=== PATIENT | female | born 1965 | race American Indian/Alaskan Native ===

== ENCOUNTER 2018-07-23 14:59 | Emergency (ER) | payer OTHER ==
[2018-07-23 15:21] VITALS: BP 151/88
--- NOTE | 2018-07-23 15:22 | Emergency Department Report ---
Chief Complaint: Upper Respiratory Infection Stated Complaint: RT SIDE PAIN/CHEST CONGESTED Time Seen by Provider: 07/23/18 15:17 - HPI History of Present Illness: Pt is c/o a non productive cough that began two days (+) subjective fever, congestion, rhinorrhea, SOB current smoker Pt also c/o right flank pain x2 days (+)urinary frequency no dysuria no injury or fall (+) CVAT VSS MSE complete MSE screening note: Focused history and physical exam performed. Due to findings the following was ordered: UA, CXR ED Disposition for MSE Condition: Stable
[2018-07-23] MEDS ORDERED: PROVENTIL IH ONE (16:57)
[2018-07-23] MEDS ORDERED: DECADRON IM ONE (16:57)
[2018-07-23] MEDS ORDERED: TORADOL IM ONE (16:57)
--- NOTE | 2018-07-23 16:58 | Emergency Department Report ---
Minor Respiratory - HPI Chief Complaint: Upper Respiratory Infection Stated Complaint: RT SIDE PAIN/CHEST CONGESTED Time Seen by Provider: 07/23/18 15:17 Duration: 2 Days Pain Location: Chest Severity: mild Minor Respiratory: Yes Able to Tolerate Fluids, Yes Cough, No Rhinorrhea, No Sore Throat, No Ear Pain, No Sick Contacts, No Hemoptysis, No Chest Pain, No Shortness of Breath, No Fever Other History: Patient is a 53 year-old female comes to the ER with cough congestion fever and right-sided pain for 2 days. She has a history of chronic bronchitis. The pain is lower right thoracic area and it is worse with movement. She has taken no medications at home to make this better. Vital signs are stable, she is afebrile, and she is ambulatory on admission to the ED ED Review of Systems ROS: Stated complaint: RT SIDE PAIN/CHEST CONGESTED Other details as noted in HPI Comment: All other systems reviewed and negative Constitutional: see HPI. denies: chills, fever Eyes: denies: eye pain ENT: as per HPI. denies: ear pain Respiratory: see HPI Cardiovascular: as per HPI, other (r side lateral rib cage area) Endocrine: denies: intolerance to cold Gastrointestinal: denies: abdominal pain, nausea, vomiting Genitourinary: denies: urgency, dysuria Musculoskeletal: denies: back pain Skin: denies: rash Neurological: denies: headache Psychiatric: denies: as per HPI, depression Hematological/Lymphatic: denies: easy bleeding ED Past Medical Hx - Past Medical History Hx Hypertension: Yes Hx Asthma: Yes Additional medical history: hypothyroid. high cholesterol - Surgical History Additional Surgical History: Cesearean section x2 - Family History Family history: no significant - Social History Smoking Status: Current Every Day Smoker Substance Use Type: None - Medications Home Medications: Home Medications Medication Instructions Recorded Confirmed Last Taken Type Albuterol Sulfate [Ventolin HFA] 2 puff IH Q4H PRN #1 hfa.aer.ad 07/23/18 Unknown Rx Azithromycin [Zithromax Z-MECHE] 250 mg PO DAILY #6 tablet 07/23/18 Unknown Rx Benzonatate [Tessalon Perles] 100 mg PO Q8HR PRN #20 capsule 07/23/18 Unknown Rx predniSONE [Deltasone] 20 mg PO DAILY #5 tablet 07/23/18 Unknown Rx Minor Respiratory Exam - Exam General: Vital signs noted. No distress. Alert and acting appropriately. HEENT: Yes Moist Mucous Membranes, Yes Rhinorrhea, No Pharyngeal Erythema, No Pharyngeal Exudates, No Conjuctival Injection, No Frontal Tenderness, No Maxillary Tenderness Ear: Neither TM Bulge, Neither TM Erythema, Neither EAC Pain, Neither EAC Discharge Neck: Yes Supple, No Adenopathy Lungs: Yes Good Air Exchange, Yes Wheezes, Yes Cough, No Ronchi, No Stridor, No Labored Respirations, No Retractions, No Use of Accessory Muscles, No Other Abnormal Lung Sounds Heart: Yes Regular, No Murmur Abdomen: Yes Normal Bowel Sounds, No Tenderness, No Peritoneal Signs Skin: No Rash, No Edema Neurologic: Alert and oriented, no deficits. Musculoskeletal: Unremarkable. ED Course Vital Signs 07/23/18 15:18 Temperature 98.5 F Pulse Rate 96 H Respiratory 20 Rate Blood Pressure 151/88 O2 Sat by Pulse 99 Oximetry ED Medical Decision Making - Radiology Data Radiology results: report reviewed, image reviewed - Medical Decision Making Vital Signs 07/23/18 15:18 Temperature 98.5 F Pulse Rate 96 H Respiratory 20 Rate Blood Pressure 151/88 O2 Sat by Pulse 99 Oximetry duoneb, prednisone and toradol for pain . Will dc home on antibiotics. Pt has been instructed to follow up with PCP this week to be sure she is getting better. Critical care attestation.: If time is entered above; I have spent that time in minutes in the direct care of this critically ill patient, excluding procedure time. ED Disposition Clinical Impression: Bronchitis, Chest wall pain Disposition: DC-01 TO HOME OR SELFCARE Is pt being admited?: No Does the pt Need Aspirin: No Condition: Stable Instructions: Chronic Bronchitis (ED), Trigger Point Pain (ED) Additional Instructions: meds as ordered today hydrate well with water follow up with pcp to be sure you are getting better diet and activity as tolerated Referrals: SOPHIA STRICKLAND MD [Primary Care Provider] - 3-5 Days Time of Disposition: 17:07
[2018-07-23 17:41] LABS: Bacteria,Urine 1+ /HPF (Negative); Bilirubin,Urine NEG (Negative); Blood,Urine NEG (Negative); Color,Urine Amber (Yellow); Hyaline Casts,Urine 2 /LPF; Mucus,Urine 3+ /HPF
--- NOTE | 2018-07-23 17:56 | XRay Report ---
PROCEDURE: Chest. TECHNIQUE: PA and lateral views. HISTORY: Cough, smoker. COMPARISONS: None. FINDINGS: The heart and mediastinum appear normal. The lungs are clear and well expanded. There are no pleural effusions. The soft tissues and regional skeleton are unremarkable. IMPRESSION: Normal study. This document is electronically signed by Angel Toribio MD., July 23 2018 05:53:41 PM ET
== END 2018-07-23 18:20 | disposition home or self-care (01) ==
LOC: ED 14:59
DX: J40 Bronchitis, not specified as acute or chronic (principal); I10 Essential (primary) hypertension; F17.200 Nicotine dependence, unspecified, uncomplicated
CPT/HCPCS: 71046; 81001; 94640; 96372; 99284; J1100; J1885

== ENCOUNTER 2021-04-28 15:01 | Emergency (ER) | payer OTHER ==
[2021-04-28 16:38] LABS: Basophils % (Auto) 0.5 % (0.0-1.8); Eosinophils # (Auto) 0.1 K/mm3 (0.0-0.4); Eosinophils % (Auto) 1.4 % (0.0-4.3); Hemoglobin 14.3 gm/dl (10.1-14.3); Lymphocytes # (Auto) 2.1 K/mm3 (1.2-5.4); Lymphocytes % (Auto) 21.4 % (13.4-35.0); Mean Corpuscular HGB Conc 32 % (30-34); Mean Corpuscular Volume 93 fl (79-97); Monocytes # (Auto) 0.9 K/mm3 (0.0-0.8); Monocytes % (Auto) 9.2 % (0.0-7.3); Platelet Count 236 K/mm3 (140-440); Red Blood Count 4.86 M/mm3 (3.65-5.03); Red Cell Distribution Width 13.5 % (13.2-15.2)
[2021-04-28 16:42] LABS: Alanine Aminotransferase 17 units/L (7-56); Albumin 4.3 g/dL (3.9-5); Blood Urea Nitrogen 12 mg/dL (7-17); Calcium 9.5 mg/dL (8.4-10.2); Hemolysis Index 9
[2021-04-28 16:43] LABS: BUN/Creatinine Ratio 20
--- NOTE | 2021-04-28 16:49 | XRay Report ---
CHEST 2 VIEWS INDICATION / CLINICAL INFORMATION: chest pain STUDY TIME: 1633 COMPARISON: 07/23/2018 FINDINGS: SUPPORT DEVICES: None. HEART / MEDIASTINUM: No significant abnormality. LUNGS / PLEURA: No significant acute pulmonary or pleural abnormality. No pneumothorax. ADDITIONAL FINDINGS: No significant additional findings. Signer Name: Erwin Peres MD Signed: 04/28/2021 4:44 PM Workstation Name: [id number]
--- NOTE | 2021-04-28 17:15 | Emergency Department Report ---
ED Chest Pain HPI - General Chief Complaint: Chest Pain Stated Complaint: CHEST PAIN Time Seen by Provider: 04/28/21 16:23 Source: patient Mode of arrival: Ambulatory Limitations: No Limitations - History of Present Illness Initial Comments: Patient is 55-year-old female with history of hypertension. Patient presented to the ER complaining of 2-week history of substernal chest pain. Patient stated that pain is aching in nature with no radiation. She stated that pain increases with sneezing and coughing and sometimes with like certain movement. She denies any shortness of breath, fever or chills. MD Complaint: chest pain -: week(s) (2) Onset: during rest Pain Location: left chest Pain Radiation: none Severity: moderate Severity scale (0 -10): 5 Quality: aching Consistency: intermittent - Related Data Previous Rx's Medication Instructions Recorded Last Taken Type Albuterol Sulfate [Ventolin HFA] 2 puff IH Q4H PRN #1 hfa.aer.ad 07/23/18 Unknown Rx Azithromycin [Zithromax Z-MECHE] 250 mg PO DAILY #6 tablet 07/23/18 Unknown Rx Benzonatate [Tessalon Perles] 100 mg PO Q8HR PRN #20 capsule 07/23/18 Unknown Rx predniSONE [Deltasone] 20 mg PO DAILY #5 tablet 07/23/18 Unknown Rx Naproxen [Naprosyn] 500 mg PO BID #14 tablet 04/28/21 Unknown Rx Allergies Allergy/AdvReac Type Severity Reaction Status Date / Time Sulfa (Sulfonamide Allergy Hives Verified 06/15/14 16:07 Antibiotics) Heart Score - HEART Score History: Slightly suspicious EKG: Normal Age: 45-65 Risk factors: 1-2 risk factors Troponin: < normal limit HEART Score: 2 - EKG Read Time Time EKG Completed: 15:31 EKG Read Time: 15:31 - Critical Actions Critical Actions: 0-3 pts:0.9-1.7%risk of adverse cardiac event.Candidate for discharge ED Review of Systems ROS: Stated complaint: CHEST PAIN Other details as noted in HPI Comment: All other systems reviewed and negative Constitutional: denies: chills, fever Respiratory: denies: cough, shortness of breath, SOB with exertion, SOB at rest Cardiovascular: chest pain. denies: palpitations, dyspnea on exertion Gastrointestinal: denies: abdominal pain, nausea, vomiting, diarrhea, constipation, hematemesis, melena, hematochezia Musculoskeletal: denies: back pain Neurological: denies: headache, weakness, numbness, paresthesias, confusion, abnormal gait ED Past Medical Hx - Past Medical History Previous Medical History?: Yes Hx Hypertension: Yes Hx Asthma: Yes Additional medical history: hypothyroid. high cholesterol - Surgical History Past Surgical History?: Yes Additional Surgical History: Cesearean section x2 - Social History Smoking Status: Current Every Day Smoker Substance Use Type: None - Medications Home Medications: Home Medications Medication Instructions Recorded Confirmed Last Taken Type Albuterol Sulfate [Ventolin HFA] 2 puff IH Q4H PRN #1 hfa.aer.ad 07/23/18 Unknown Rx Azithromycin [Zithromax Z-MECHE] 250 mg PO DAILY #6 tablet 07/23/18 Unknown Rx Benzonatate [Tessalon Perles] 100 mg PO Q8HR PRN #20 capsule 07/23/18 Unknown Rx predniSONE [Deltasone] 20 mg PO DAILY #5 tablet 07/23/18 Unknown Rx Naproxen [Naprosyn] 500 mg PO BID #14 tablet 04/28/21 Unknown Rx ED Physical Exam - General Limitations: No Limitations General appearance: alert, in no apparent distress - Head Head exam: Present: atraumatic, normocephalic, normal inspection - Eye Eye exam: Present: normal appearance, PERRL - ENT ENT exam: Present: normal exam, normal orophraynx, mucous membranes moist - Neck Neck exam: Present: normal inspection, full ROM. Absent: tenderness, meningismus - Respiratory Respiratory exam: Present: normal lung sounds bilaterally, chest wall tenderness - Cardiovascular Cardiovascular Exam: Present: regular rate, normal rhythm, normal heart sounds - GI/Abdominal GI/Abdominal exam: Present: soft, normal bowel sounds. Absent: distended, tenderness, guarding, rebound, rigid, organomegaly, mass, bruit, pulsatile mass, hernia - Extremities Exam Extremities exam: Present: normal inspection, full ROM, normal capillary refill. Absent: tenderness, pedal edema, joint swelling, calf tenderness - Back Exam Back exam: Present: normal inspection, full ROM. Absent: CVA tenderness (R), CVA tenderness (L) - Neurological Exam Neurological exam: Present: alert, oriented X3, CN II-XII intact, normal gait, reflexes normal. Absent: motor sensory deficit - Psychiatric Psychiatric exam: Present: normal mood - Skin Skin exam: Present: warm, intact, normal color ED Course Vital Signs 04/28/21 15:09 Temperature 98.6 F Pulse Rate 66 Respiratory 16 Rate Blood Pressure 146/71 O2 Sat by Pulse 100 Oximetry ED Medical Decision Making - Lab Data Result diagrams: 04/28/21 16:09 04/28/21 16:09 - EKG Data -: EKG Interpreted by [place] EKG shows normal: sinus rhythm Rate: normal - EKG Data Interpretation: no acute changes - Radiology Data Radiology results: report reviewed - Medical Decision Making Patient is 55-year-old female with history of hypertension. Patient presented to the ER complaining of 2-week history of substernal chest pain. Patient stated that pain is aching in nature with no radiation. She stated that pain increases with sneezing and coughing and sometimes with like certain movement. She denies any shortness of breath, fever or chills. EKG is unremarkable. Chest x-ray is negative for acute finding. Labs reviewed and is unremarkable including a negative troponin x2. Patient chest pain is reproducible with significant chest tenderness on palpation. Patient symptoms most likely related to costochondritis however patient strongly advised to follow-up with her primary care physician for outpatient cardiac work-up and to follow-up with solicitor patent in the next 2 to 3 days. Patient also advised to return to the ER if she develop any new symptoms or if her symptoms get worse. Critical care attestation.: If time is entered above; I have spent that time in minutes in the direct care of this critically ill patient, excluding procedure time. ED Disposition Clinical Impression: Acute chest pain, Costochondritis, acute Disposition: 01 HOME / SELF CARE / HOMELESS Is pt being admited?: No Condition: Stable Instructions: Costochondritis, Neoa-mf-Finl, Nonspecific Chest Pain, Adult, Chest Pain (ED) Prescriptions: Naproxen [Naprosyn] 500 mg PO BID #14 tablet Referrals: PRIMARY CARE, [Primary Care Provider] - 3-5 Days
[2021-04-28 19:05] VITALS: BP 152/84
--- NOTE | 2021-04-29 10:33 | Electrocardiograph Report ---
[facility] Test Date: 2021-04-28 Test Time: 15:31:04 Pat Name: HESHAM MENDEZ Department: Room: Gender: F Sba Underwriter: SELENA : 1965 Requested By: LILIA PAEZ Order Number: [id number] Reading MD: Merle Atkins Measurements Intervals [place] Rate: 60 P: 30 DC: 164 QRS: -24 QRSD: 112 T: -50 QT: 423 QTc: 423 Interpretive Statements Sinus rhythm Probable left atrial enlargement Nonspecific T abnormalities, diffuse leads No previous ECG available for comparison Electronically Signed On 04-29-2021 10:32:49 EST by Merle Atkins
== END 2021-04-28 19:03 | disposition home or self-care (01) ==
LOC: ED 15:01
DX: M94.0 Chondrocostal junction syndrome [Tietze] (principal); F17.290 Nicotine dependence, other tobacco product, uncomplicated; I10 Essential (primary) hypertension; E03.9 Hypothyroidism, unspecified; E78.00 Pure hypercholesterolemia, unspecified; Z98.890 Other specified postprocedural states; Z79.899 Other long term (current) drug therapy
CPT/HCPCS: 36415; 71046; 80053; 84484; 85025; 93005; 99283